=== PATIENT | female | born 1985 | race Caucasian/White ===

== ENCOUNTER → 2016-11-10 | Outpatient (CLI) | payer OTHER ==
[2016-11-10 18:01] LABS: Basophils % (A) 0 %; CH 28.4; CHCM 32.8; Eosinophils # (A) 0.1 k/uL (0-0.7); Eosinophils % (A) 3 %; HCT 42.1 % (34.0-46.0); HDW 2.62; HGB 13.3 gm/dL (11.4-16.0); Luc # (Auto) 0.09; Luc % (Auto) 2; Lymphocytes # (A) 1.9 k/uL (1.0-4.8); Lymphocytes % (A) 39 %; MCH 27.5 pg (25.0-35.0); MCHC 31.7 g/dL (31.0-37.0); MCV 86.8 fL (80.0-100.0); Mean Platelet Volume 7.9; Monocytes # (A) 0.3 k/uL (0-1.0); Monocytes % (A) 5 %; Neutrophils # (A) 2.4 k/uL (1.3-7.7); Neutrophils % (A) 50 %; RBC 4.85 m/uL (3.80-5.40); RDW 13.1 % (11.5-15.5); WBC 4.7 k/uL (3.8-10.6); WBC (Perox) 5.07
[2016-11-10 18:22] LABS: ALT 23 U/L (9-52); AST 22 U/L (14-36); Alkaline Phosphatase 57 U/L (38-126); Anion Gap 12 mmol/L; Blood Urea Nitrogen 12 mg/dL (7-17); Calcium 9.2 mg/dL (8.4-10.2); Carbon Dioxide 28 mmol/L (22-30); Chloride 103 mmol/L (98-107); Cholesterol 128 mg/dL (<200); Glucose 82 mg/dL (74-99); HDL Cholesterol 65 mg/dL (40-60); Non-African American GFR(MDRD) >60 (>60 ml/min/1.73 sqM); Potassium 4.5 mmol/L (3.5-5.1); Sodium 143 mmol/L (137-145); Total Bilirubin 0.7 mg/dL (0.2-1.3); Total Protein 7.4 g/dL (6.3-8.2); Triglycerides 42 mg/dL (<150)
== END | disposition home or self-care (01) ==
LOC: MMGSC 10:53
PROVIDERS: ATTEND Family Medicine
DX: Z00.00 Encounter for general adult medical examination without abnormal findings (principal); R63.5 Abnormal weight gain
CPT/HCPCS: 36415; 80053; 80061; 84439; 84443; 85025

== ENCOUNTER → 2017-01-11 | Outpatient (CLI) | payer OTHER ==
[2017-01-11 20:32] LABS: ALT 30 U/L (9-52); AST 19 U/L (14-36); Alkaline Phosphatase 45 U/L (38-126); Anion Gap 9 mmol/L; Blood Urea Nitrogen 12 mg/dL (7-17); Calcium 9.8 mg/dL (8.4-10.2); Carbon Dioxide 28 mmol/L (22-30); Chloride 104 mmol/L (98-107); Glucose 81 mg/dL (74-99); Non-African American GFR(MDRD) >60 (>60 ml/min/1.73 sqM); Potassium 4.1 mmol/L (3.5-5.1); Sodium 141 mmol/L (137-145); Total Bilirubin 0.4 mg/dL (0.2-1.3); Total Protein 7.6 g/dL (6.3-8.2)
== END ==
LOC: MMGSC 10:37
PROVIDERS: ATTEND Family Medicine
DX: I10 Essential (primary) hypertension (principal); Z51.81 Encounter for therapeutic drug level monitoring
CPT/HCPCS: 36415; 80053

== ENCOUNTER → 2020-01-07 | Outpatient (CLI) | payer BC ==
--- NOTE | 2020-01-07 09:30 | US ---
EXAMINATION TYPE: US abdomen complete DATE OF EXAM: 01/07/2020 COMPARISON: NONE CLINICAL HISTORY: abd pain. abdomen pain x 4 days EXAM MEASUREMENTS: Liver Length: 13.9 cm Gallbladder Wall: 0.2 cm CBD: 0.5 cm Spleen: 9.8 cm Right Kidney: 11.3 x 4.4 x 4.7 cm Left Kidney: 11.2 x 5.5 x 4.3 cm Pancreas: wnl Liver: 1.5 x 1.9 x 1.5cm cyst right lobe Gallbladder: 0.4cm polyp anterior wall Evidence for sonographic Grullon's sign: no CBD: wnl Spleen: visualized portions wnl, limited by overlying bowel gas Right Kidney: fullness of renal pelvis Left Kidney: fullness of renal pelvis Upper IVC: wnl Abd Aorta: wnl The liver is homogenous. The intrahepatic portion of the IVC and proximal abdominal aorta are within normal limits. There is no evidence of cholelithiasis. Common bile duct is unremarkable. The visu alized portions of the pancreas are homogenous. The spleen is unremarkable. No renal lesions are se en. IMPRESSION: 1. Hepatic cyst. 2. Gallbladder polyp. 3. Nonspecific fullness of the renal collecting systems.
--- NOTE | 2020-01-07 09:31 | US ---
EXAMINATION TYPE: US pelvic complete DATE OF EXAM: 01/07/2020 COMPARISON: NONE CLINICAL HISTORY: Abd pain R10.9 Pelvic pain R10.2. Abdomen pain x 4 days TECHNIQUE: . Transabdominal sonographic images of the pelvis were acquired. Date of LMP: 1 to 2 weeks ago EXAM MEASUREMENTS: Uterus: 10.7 x 3.4 x 3.8 cm Endometrial Stripe: 0.5 cm Right Ovary: 4.1 x 2.2 x 2.2 cm Left Ovary: 3.4 x 2.0 x 2.2 cm 1. Uterus: wnl 2. Endometrium: wnl 3. Right Ovary: multiple follicles 4. Left Ovary: multiple follicles Spectral, color and waveform doppler imaging shows good arterial and venous flow within the ovaries ; there is no evidence for ovarian torsion. 5. Bilateral Adnexa: wnl 6. Posterior cul-de-sac: wnl IMPRESSION: No significant abnormality appreciated.
== END | disposition home or self-care (01) ==
LOC: RADUSWWP 08:19
PROVIDERS: ATTEND Family Medicine
DX: K76.89 Other specified diseases of liver (principal); K82.4 Cholesterolosis of gallbladder; R10.2 Pelvic and perineal pain
CPT/HCPCS: 76700; 76856; 93975

== ENCOUNTER 2020-03-16 23:58 | Emergency (ER) | payer BC ==
--- NOTE | 2020-03-17 01:19 | XR ---
EXAMINATION TYPE: XR chest 2V DATE OF EXAM: 03/17/2020 COMPARISON: 10/17/2019 HISTORY: Chest pain TECHNIQUE: FINDINGS: Heart and mediastinum are normal. Lungs are clear. Diaphragm is normal. Bony thorax appears normal. IMPRESSION: Normal chest. No change.
[2020-03-17 02:13] LABS: Basophils % (A) 1 %; Eosinophils # (A) 0.3 k/uL (0-0.7); Eosinophils % (A) 3 %; HCT 41.1 % (34.0-46.0); HGB 13.3 gm/dL (11.4-16.0); Lymphocytes # (A) 2.7 k/uL (1.0-4.8); Lymphocytes % (A) 33 %; MCH 27.9 pg (25.0-35.0); MCHC 32.4 g/dL (31.0-37.0); Mean Platelet Volume 8.8; Monocytes # (A) 0.5 k/uL (0-1.0); Monocytes % (A) 6 %; Neutrophils # (A) 4.6 k/uL (1.3-7.7); Neutrophils % (A) 56 %; Platelet Count 182 k/uL (150-450); RBC 4.78 m/uL (3.80-5.40); RDW 13.1 % (11.5-15.5); WBC 8.2 k/uL (3.8-10.6)
--- NOTE | 2020-03-17 02:29 | ED ---
SOB HPI - General Source: patient Mode of arrival: ambulatory Limitations: no limitations <Oef Avendano - Last Filed: 03/17/20 03:26> <Kalin Coley - Last Filed: 03/17/20 05:31> - General Chief Complaint: Shortness of Breath Stated Complaint: Shortness of Breath Time Seen by Provider: 03/17/20 01:45 - History of Present Illness Initial Comments: Patient is a 34-year-old female, with history of anxiety and hypertension, presenting to the emergency Department with complaints of shortness of breath that has been increasing over the past week. She states she is also been having some mild chest discomfort with deep breathing over the past week as well. She states she thought it might just be her anxiety but typically that goes away after a few days. She states she has been stressing about her symptoms lately. She did take a Klonopin before she came in to the ER approximately 3 hours ago and it did seem to help her symptoms some. Patient denies any falls or trauma. She denies any recent fever, chills, cough. She denies any abdominal complaints or urinary complaints. She has no history of asthma. She has no further complaints at this time. Upon arrival to the ER, her vital signs are stable. (Ofe Avendano) - Related Data Allergies Allergy/AdvReac Type Severity Reaction Status Date / Time No Known Allergies Allergy Verified 03/17/20 00:28 Review of Systems ROS Other: All systems not noted in ROS Statement are negative. <Ofe Avendano - Last Filed: 03/17/20 03:26> ROS Other: All systems not noted in ROS Statement are negative. <Kalin Coley - Last Filed: 03/17/20 05:31> ROS Statement: Those systems with pertinent positive or pertinent negative responses have been documented in the HPI. Past Medical History Past Medical History: Hypertension History of Any Multi-Drug Resistant Organisms: None Reported Past Surgical History: No Surgical Hx Reported Past Psychological History: Anxiety Smoking Status: Current every day smoker Past Alcohol Use History: Rare Past Drug Use History: None Reported <Ofe Avendano - Last Filed: 03/17/20 03:26> General Exam Limitations: no limitations <Ofe Avendano - Last Filed: 06/29/20 03:26> - General Exam Comments Initial Comments: GENERAL: Well-appearing, well-nourished and in no acute distress. HEAD: Atraumatic, normocephalic. EYES: Pupils equal round and reactive to light, extraocular movements intact, sclera anicteric, conjunctiva are normal. ENT: TMs normal, nares patent, oropharynx clear without exudates. Moist mucous membranes. NECK: Normal range of motion, supple without lymphadenopathy or JVD. LUNGS: Breath sounds clear to auscultation bilaterally and equal. No wheezes rales or rhonchi. HEART: Regular rate and rhythm without murmurs, rubs or gallops. ABDOMEN: Soft, nontender, normoactive bowel sounds. No guarding, no rebound. No masses appreciated. : Deferred EXTREMITIES: Normal range of motion, no pitting or edema. No clubbing or cyanosis. NEUROLOGICAL: Normal speech, normal gait. PSYCH: Normal mood, normal affect. SKIN: Warm, Dry, normal turgor, no rashes or lesions noted. (Ofe Avendano) Course Vital Signs 03/17/20 03/17/20 03/17/20 00:23 01:54 01:59 Temperature 99.5 F Pulse Rate 87 74 Respiratory 18 16 16 Rate Blood Pressure 123/80 127/97 O2 Sat by Pulse 100 100 Oximetry 03/17/20 03/17/20 03/17/20 02:00 03:00 04:19 Temperature 97.4 F L Pulse Rate 80 75 76 Respiratory 16 16 20 Rate Blood Pressure 141/106 116/84 134/93 O2 Sat by Pulse 100 98 99 Oximetry Medical Decision Making - Lab Data Result diagrams: 03/17/20 01:51 03/17/20 01:51 <Ofe Avendano - Last Filed: 03/17/20 03:26> - Lab Data Result diagrams: 03/17/20 01:51 03/17/20 01:51 - Radiology Data Radiology results: report reviewed (CTA chest is negative for acute disease), image reviewed <Kalin Coley - Last Filed: 03/17/20 05:31> - Medical Decision Making Patient is a 34-year-old female, with history of anxiety and hypertension, presenting for increasing shortness of breath over the past week as well as some mild chest discomfort with deep inhalation. She's had no fevers, her vitals are stable. EKG reveals normal sinus rhythm, no acute findings. Chest x-ray shows no acute findings. D-dimer was elevated at 5.49, no other abnormal lab findings, troponin was normal. Case was signed out to Dr. Coley, pending CTA chest to r/o PE. (Ofe Avendano) 32 female, patient has computed tomography scan chest which is negative for acute disease unknown cause of symptoms patient can be discharged home (Kalin Coley) - Lab Data Lab Results 03/17/20 03/17/20 03/17/20 Range/Units 01:51 01:51 01:51 WBC 8.2 (3.8-10.6) k/uL RBC 4.78 (3.80-5.40) m/uL Hgb 13.3 (11.4-16.0) gm/dL Hct 41.1 (34.0-46.0) % MCV 86.0 (80.0-100.0) fL MCH 27.9 (25.0-35.0) pg MCHC 32.4 (31.0-37.0) g/dL RDW 13.1 (11.5-15.5) % Plt Count 182 (150-450) k/uL Neutrophils % 56 % Lymphocytes % 33 % Monocytes % 6 % Eosinophils % 3 % Basophils % 1 % Neutrophils # 4.6 (1.3-7.7) k/uL Lymphocytes # 2.7 (1.0-4.8) k/uL Monocytes # 0.5 (0-1.0) k/uL Eosinophils # 0.3 (0-0.7) k/uL Basophils # 0.0 (0-0.2) k/uL D-Dimer 5.49 H (<0.60) mg/L FEU Sodium 137 (137-145) mmol/L Potassium 4.1 (3.5-5.1) mmol/L Chloride 103 (98-107) mmol/L Carbon Dioxide 24 (22-30) mmol/L Anion Gap 10 mmol/L BUN 20 H (7-17) mg/dL Creatinine 0.64 (0.52-1.04) mg/dL Est GFR (CKD-EPI)AfAm >90 (>60 ml/min/1.73 sqM) Est GFR (CKD-EPI)NonAf >90 (>60 ml/min/1.73 sqM) Glucose 94 (74-99) mg/dL Calcium 9.8 (8.4-10.2) mg/dL Total Bilirubin 0.4 (0.2-1.3) mg/dL AST 23 (14-36) U/L ALT 13 (4-34) U/L Alkaline Phosphatase 62 (38-126) U/L Troponin I (0.000-0.034) ng/mL Total Protein 7.5 (6.3-8.2) g/dL Albumin 4.7 (3.5-5.0) g/dL 03/17/20 Range/Units 01:51 WBC (3.8-10.6) k/uL RBC (3.80-5.40) m/uL Hgb (11.4-16.0) gm/dL Hct (34.0-46.0) % MCV (80.0-100.0) fL MCH (25.0-35.0) pg MCHC (31.0-37.0) g/dL RDW (11.5-15.5) % Plt Count (150-450) k/uL Neutrophils % % Lymphocytes % % Monocytes % % Eosinophils % % Basophils % % Neutrophils # (1.3-7.7) k/uL Lymphocytes # (1.0-4.8) k/uL Monocytes # (0-1.0) k/uL Eosinophils # (0-0.7) k/uL Basophils # (0-0.2) k/uL D-Dimer (<0.60) mg/L FEU Sodium (137-145) mmol/L Potassium (3.5-5.1) mmol/L Chloride (98-107) mmol/L Carbon Dioxide (22-30) mmol/L Anion Gap mmol/L BUN (7-17) mg/dL Creatinine (0.52-1.04) mg/dL Est GFR (CKD-EPI)AfAm (>60 ml/min/1.73 sqM) Est GFR (CKD-EPI)NonAf (>60 ml/min/1.73 sqM) Glucose (74-99) mg/dL Calcium (8.4-10.2) mg/dL Total Bilirubin (0.2-1.3) mg/dL AST (14-36) U/L ALT (4-34) U/L Alkaline Phosphatase (38-126) U/L Troponin I <0.012 (0.000-0.034) ng/mL Total Protein (6.3-8.2) g/dL Albumin (3.5-5.0) g/dL - EKG Data EKG Comments: Normal sinus rhythm with sinus arrhythmia, normal ECG, no signs of acute ischemia. Ventricular rate 85, ME interval 146, QT 374. (Ofe Avendano) Disposition <Ofe Avendano - Last Filed: 03/17/20 03:26> Is patient prescribed a controlled substance at d/c from ED?: No <Kalin Coley - Last Filed: 03/17/20 05:31> Clinical Impression: Chest pain Disposition: HOME SELF-CARE Condition: Good Instructions (If sedation given, give patient instructions): Chest Pain (ED) Referrals: Kira Burgos MD [Primary Care Provider] - 1-2 days
[2020-03-17 02:32] LABS: ALT 13 U/L (4-34); AST 23 U/L (14-36); African American GFR (CKD) >90 (>60 ml/min/1.73 sqM); Albumin 4.7 g/dL (3.5-5.0); Alkaline Phosphatase 62 U/L (38-126); Anion Gap 10 mmol/L; Blood Urea Nitrogen 20 mg/dL (7-17); Calcium 9.8 mg/dL (8.4-10.2); Carbon Dioxide 24 mmol/L (22-30); Chloride 103 mmol/L (98-107); Glucose 94 mg/dL (74-99); Non-African American GFR(CKD) >90 (>60 ml/min/1.73 sqM); Potassium 4.1 mmol/L (3.5-5.1); Sodium 137 mmol/L (137-145); Total Bilirubin 0.4 mg/dL (0.2-1.3); Total Protein 7.5 g/dL (6.3-8.2)
--- NOTE | 2020-03-17 03:47 | CT ---
EXAMINATION TYPE: CT chest angio for PE DATE OF EXAM: 03/17/2020 COMPARISON: None HISTORY: R/O PE CT DLP: 415.70 mGycm Automated exposure control for dose reduction was used. CONTRAST: Performed with IV Contrast, patient injected with 70 mL of Isovue 370. The lungs are clear of infiltrate. There is no pleural effusion or pneumothorax. Heart size is normal . There is no pericardial effusion. There is 2 cm cyst in the right lobe of the liver. There are no hilar masses. There is no mediastinal adenopathy. Thoracic aorta is intact. There is no aneurysm or dissection. There is normal contrast opacification of the pulmonary arteries. There are no filling defects. Thoracic vertebra have normal spacing and alignment. There is no compression fracture. The ribs appea r intact. IMPRESSION: Negative exam. No evidence of pulmonary embolism.
[2020-03-17 04:20] VITALS: BP 134/93; PULSE 76; RESP 20; TEMP 97.4
== END 2020-03-17 04:18 | disposition home or self-care (01) ==
LOC: EC 23:58
DX: R07.1 Chest pain on breathing (principal); R06.02 Shortness of breath; I10 Essential (primary) hypertension; F41.9 Anxiety disorder, unspecified; F17.200 Nicotine dependence, unspecified, uncomplicated; Z79.899 Other long term (current) drug therapy
CPT/HCPCS: 99285; 36415; 93005; 85379; 80053; 84484; 85025; 71046; 71275; Q9967

== ENCOUNTER 2023-09-01 08:36 | Emergency (ER) | payer BC ==
[2023-09-01] MEDS ORDERED: KETOROLAC 15 MG/ML 1 ML VIAL IVP STA (08:55)
[2023-09-01] MEDS ORDERED: SODIUM CHLORIDE 0.9% 1,000 ML IV STA (08:55)
--- NOTE | 2023-09-01 09:00 | ED ---
Abdominal Pain HPI - General Chief Complaint: Abdominal Pain Stated Complaint: right/center abd pain Time Seen by Provider: 09/01/23 08:43 Source: patient, RN notes reviewed Mode of arrival: ambulatory Limitations: no limitations - History of Present Illness Initial Comments: This is a 38-year-old female who presents to the emergency department for abdom inal pain. States that this is in the right upper quadrant and described as a squeezing sensation. This has been occurring intermittently over the last 4 months, and states that she typically ignores it. However the pain has gotten much worse over the last 4-5 days. She does occasionally have nausea associated with this. Pain seems to be worse after she eats, unsure if this is related to fatty/greasy foods. She does note that she seems to have problems with large meals specifically, and symptoms begin within an hour of eating. She has never had her gallbladder evaluated. MD Complaint: abdominal pain - Related Data Previous Rx's Medication Instructions Recorded Ketorolac [Toradol] 10 mg PO Q6HR PRN #15 tab 09/01/23 Ondansetron Odt [Zofran Odt] 4 mg PO Q8HR PRN #15 tab 09/01/23 Allergies Allergy/AdvReac Type Severity Reaction Status Date / Time No Known Allergies Allergy Verified 09/01/23 08:42 Review of Systems ROS Statement: Those systems with pertinent positive or pertinent negative responses have been documented in the HPI. ROS Other: All systems not noted in ROS Statement are negative. Past Medical History Past Medical History: Hypertension History of Any Multi-Drug Resistant Organisms: None Reported Past Surgical History: No Surgical Hx Reported Past Psychological History: Anxiety Smoking Status: Never smoker Past Alcohol Use History: Occasional, Rare Past Drug Use History: None Reported General Exam Limitations: no limitations General appearance: alert, in no apparent distress Head exam: Present: atraumatic, normocephalic, normal inspection Respiratory exam: Present: normal lung sounds bilaterally. Absent: respiratory distress, wheezes, rales, rhonchi, stridor Cardiovascular Exam: Present: regular rate, normal rhythm, normal heart sounds. Absent: systolic murmur, diastolic murmur, rubs, gallop, clicks GI/Abdominal exam: Present: soft, normal bowel sounds. Absent: distended, tenderness, guarding, rebound, rigid Neurological exam: Present: alert, oriented X3, CN II-XII intact Psychiatric exam: Present: normal affect, normal mood Skin exam: Present: warm, dry, intact, normal color. Absent: rash Course Vital Signs 09/01/23 09/01/23 09/01/23 08:38 10:00 11:25 Temperature 97.8 F 98.1 F 98.1 F Pulse Rate 130 H 75 89 Respiratory 18 16 16 Rate Blood Pressure 125/88 127/87 106/70 O2 Sat by Pulse 100 99 100 Oximetry 09/01/23 12:37 Temperature 98.4 F Pulse Rate 76 Respiratory 16 Rate Blood Pressure 132/76 O2 Sat by Pulse 99 Oximetry Medical Decision Making - Medical Decision Making This is a 38-year-old female who presents to the emergency department for abdominal pain. Was pt. sent in by a medical professional or institution? @ -No Did you speak to anyone other than the patient for history? @ -No Did you review nursing and triage notes? @ -Yes, and I agree, it is accurate with regards to the patient's symptoms. Were old charts reviewed? @ -No Differential Diagnosis? @ -Differential Abdominal Pain Women: Appendicitis, Cholecystitis, diverticulosis, ischemic bowel, pancreatitis, hepatitis, UTI, gastroenteritis, AAA, incarcerated hernia, bowel obstruction, constipation, inflammatory bowel, hepatitis, peptic ulcer disease, splenic infarction, perforated viscus, vulvitis, ovarian torsion, PID, kidney stone, placenta abruption, this is not meant to be an all-inclusive list EKG interpreted by me (3pts min.)? @ -Not obtained X-rays interpreted by me (1pt min.)? @ -Not obtained CT interpreted by me (1pt min.)? @ -Computed tomography scan of the abdomen and pelvis obtained. My interpretation identifies no evidence of bowel wall thickening or free air. U/S interpreted by me (1pt. min.)? @ -Gallbladder ultrasound. My interpretation identifies no evidence of cholelithiasis. What testing was considered but not performed? (CT, X-rays, U/S, labs)? Why? @ -None What meds were considered but not given? Why? @ -None Did you discuss the management of the patient with other professionals? @ -No Did you reconcile home meds? @ -No Was smoking cessation discussed for >3mins.? @ -I discussed smoking cessation for greater than 3 minutes. The risk of smoking were discussed with the patient including but not limited to risks of cancer, stroke, coronary artery disease and COPD. Also discussed with patient were multiple methods of quitting smoking. Lastly we discussed the financial cost of smoking. Was critical care preformed (if so, how long)? @ -No Were there social determinants of health that impacted care today? How? (Homelessness, low income, unemployed, alcoholism, drug addiction, transportation, low edu. Level, literacy, decrease access to med. care, care home, rehab)? @ -No Was there de-escalation of care discussed even if they declined? (Discuss DNR or withdrawal of care, Hospice)? @ -No What co-morbidities impacted this encounter? (DM, HTN, Smoking, COPD, CAD, Cancer, CVA, Hep., AIDS, mental health diagnosis, sleep apnea, morbid obesity)? @ -None Was patient admitted / discharged? @ -Discharged. Lab work obtained and found to be unremarkable. Urinalysis is contaminated, but not overtly suggestive of infection. She was noted to have a likely gallbladder polyp and fullness of the right renal pelvis, without evidence of cholelithiasis or acute process to explain her symptoms. She did request further evaluation to see if we could find a potential answer. Discussed that the only other imaging modality we can perform in emergency department related to her symptoms is a computed tomography scan. Patient requests we proceed. This revealed no acute process. Advised that symptoms may be related to a biliary dyskinesia, and she'll need to follow-up with her primary care provider to discuss a HIDA scan. Case management did reach out to gastroenterology, however they are scheduling out until October. She was then given an appointment with her primary care provider for 8 days from now for reevaluation of symptoms and to see if they will order the HIDA scan for the patient. Prescription for Toradol and Zofran provided with dosing instructions reviewed. Advised she follow a small and low fat, bland diet for the meantime and avoid any greasy or fatty foods to reduce the risk of recurrence. Patient discharged home in stable condition. Undiagnosed new problem with uncertain prognosis? @ -None Drug Therapy requiring intensive monitoring for toxicity (Heparin, Nitro, Insulin, Cardizem)? @ -None Were any procedures done? @ -None Diagnosis/symptom? @ -Biliary dyskinesia Acute, or Chronic, or Acute on Chronic? @ -Acute Uncomplicated (without systemic symptoms) or Complicated (systemic symptoms)? @ -Uncomplicated Side effects of treatment? @ -None Exacerbation, Progression, or Severe Exacerbation] @ -Not applicable Poses a threat to life or bodily function? @ -No Return precautions reviewed in depth, the patient is instructed to return to the emergency department with any new, worsening, or concerning symptoms. Patient verbalized understanding. This case was discussed in detail with the attending ED physician, Dr. Mcfarlane. Presentation, findings, and treatment plan discussed in detail as well. - Lab Data Result diagrams: 09/01/23 09:05 09/01/23 09:05 Lab Results 09/01/23 09/01/23 09/01/23 Range/Units 09:05 09:05 09:05 WBC 4.1 (3.8-10.6) k/uL RBC 4.57 (3.80-5.40) m/uL Hgb 13.4 (11.4-16.0) gm/dL Hct 39.0 (34.0-46.0) % MCV 85.5 (80.0-100.0) fL MCH 29.4 (25.0-35.0) pg MCHC 34.4 (31.0-37.0) g/dL RDW 13.4 (11.5-15.5) % Plt Count 200 (150-450) k/uL MPV 8.8 Neutrophils % 44 % Lymphocytes % 44 % Monocytes % 6 % Eosinophils % 3 % Basophils % 1 % Neutrophils # 1.8 (1.3-7.7) k/uL Lymphocytes # 1.8 (1.0-4.8) k/uL Monocytes # 0.2 (0-1.0) k/uL Eosinophils # 0.1 (0-0.7) k/uL Basophils # 0.0 (0-0.2) k/uL Sodium 141 (137-145) mmol/L Potassium 4.4 (3.5-5.1) mmol/L Chloride 103 (98-107) mmol/L Carbon Dioxide 24 (22-30) mmol/L Anion Gap 14 mmol/L BUN 14 (7-17) mg/dL Creatinine 0.73 (0.52-1.04) mg/dL Est GFR (CKD-EPI)AfAm >90 (>60 ml/min/1.73 sqM) Est GFR (CKD-EPI)NonAf >90 (>60 ml/min/1.73 sqM) Glucose 79 (74-99) mg/dL Plasma Lactic Acid Connor 0.7 (0.7-2.0) mmol/L Calcium 9.5 (8.4-10.2) mg/dL Total Bilirubin 0.7 (0.2-1.3) mg/dL AST 21 (14-36) U/L ALT 18 (4-34) U/L Alkaline Phosphatase 49 (38-126) U/L Total Protein 7.3 (6.3-8.2) g/dL Albumin 4.6 (3.5-5.0) g/dL Amylase 79 (30-110) U/L Lipase 182 (23-300) U/L Urine Color Urine Appearance (Clear) Urine pH (5.0-8.0) Ur Specific [place] (1.001-1.035) Urine Protein (Negative) Urine Glucose (UA) (Negative) Urine Ketones (Negative) Urine Blood (Negative) Urine Nitrite (Negative) Urine Bilirubin (Negative) Urine Urobilinogen (<2.0) mg/dL Ur Leukocyte Esterase (Negative) Urine RBC (0-5) /hpf Urine WBC (0-5) /hpf Ur Squamous Epith Cells (0-4) /hpf Urine Bacteria (None) /hpf Urine Mucus (None) /hpf Urine HCG, Qual (Not Detectd) 09/01/23 09/01/23 Range/Units 09:05 09:05 WBC (3.8-10.6) k/uL RBC (3.80-5.40) m/uL Hgb (11.4-16.0) gm/dL Hct (34.0-46.0) % MCV (80.0-100.0) fL MCH (25.0-35.0) pg MCHC (31.0-37.0) g/dL RDW (11.5-15.5) % Plt Count (150-450) k/uL MPV Neutrophils % % Lymphocytes % % Monocytes % % Eosinophils % % Basophils % % Neutrophils # (1.3-7.7) k/uL Lymphocytes # (1.0-4.8) k/uL Monocytes # (0-1.0) k/uL Eosinophils # (0-0.7) k/uL Basophils # (0-0.2) k/uL Sodium (137-145) mmol/L Potassium (3.5-5.1) mmol/L Chloride (98-107) mmol/L Carbon Dioxide (22-30) mmol/L Anion Gap mmol/L BUN (7-17) mg/dL Creatinine (0.52-1.04) mg/dL Est GFR (CKD-EPI)AfAm (>60 ml/min/1.73 sqM) Est GFR (CKD-EPI)NonAf (>60 ml/min/1.73 sqM) Glucose (74-99) mg/dL Plasma Lactic Acid Connor (0.7-2.0) mmol/L Calcium (8.4-10.2) mg/dL Total Bilirubin (0.2-1.3) mg/dL AST (14-36) U/L ALT (4-34) U/L Alkaline Phosphatase (38-126) U/L Total Protein (6.3-8.2) g/dL Albumin (3.5-5.0) g/dL Amylase (30-110) U/L Lipase (23-300) U/L Urine Color Yellow Urine Appearance Slightly Cloudy H (Clear) Urine pH 6.0 (5.0-8.0) Ur Specific [place] 1.030 (1.001-1.035) Urine Protein Negative (Negative) Urine Glucose (UA) Negative (Negative) Urine Ketones Negative (Negative) Urine Blood Trace H (Negative) Urine Nitrite Negative (Negative) Urine Bilirubin Negative (Negative) Urine Urobilinogen 0.2 (<2.0) mg/dL Ur Leukocyte Esterase Moderate H (Negative) Urine RBC 4 (0-5) /hpf Urine WBC 22 H (0-5) /hpf Ur Squamous Epith Cells 22 H (0-4) /hpf Urine Bacteria Occasional H (None) /hpf Urine Mucus Few H (None) /hpf Urine HCG, Qual Not Detected (Not Detectd) - Radiology Data Radiology results: report reviewed, image reviewed Disposition Clinical Impression: Biliary dyskinesia, Nicotine dependence Disposition: HOME SELF-CARE Instructions (If sedation given, give patient instructions): HIDA Scan (DC), Biliary Dyskinesia (DC) Additional Instructions: Return to the emergency department with any new, worsening, or concerning symptoms. Take the Toradol with Tylenol as needed for pain relief. If you choose to take the Toradol, do not take any other anti-inflammatories such as ibuprofen, take one or the other. Take the Zofran up to every 8 hours as needed for nausea and vomiting. Follow a low-fat and bland diet for the meantime to reduce the risk of future episodes. Follow up with your primary care provider as scheduled. Prescriptions: Ketorolac [Toradol] 10 mg PO Q6HR PRN #15 tab PRN Reason: Pain Ondansetron Odt [Zofran Odt] 4 mg PO Q8HR PRN #15 tab PRN Reason: Nausea And Vomiting Is patient prescribed a controlled substance at d/c from ED?: No Referrals: Stephany Martines MD [STAFF PHYSICIAN] - 10/31/23 4:15 pm Kira Burgos MD [Primary Care Provider] - 09/09/23 4:00 pm Chetan Campos MD [STAFF PHYSICIAN] - (PCP Office will have to send referral to office for appointment to be made. )
[2023-09-01 09:20] LABS: Basophils % (A) 1 %; Eosinophils # (A) 0.1 k/uL (0-0.7); Eosinophils % (A) 3 %; HGB 13.4 gm/dL (11.4-16.0); Lymphocytes # (A) 1.8 k/uL (1.0-4.8); Lymphocytes % (A) 44 %; MCH 29.4 pg (25.0-35.0); MCHC 34.4 g/dL (31.0-37.0); MCV 85.5 fL (80.0-100.0); Mean Platelet Volume 8.8; Monocytes # (A) 0.2 k/uL (0-1.0); Monocytes % (A) 6 %; Neutrophils # (A) 1.8 k/uL (1.3-7.7); Neutrophils % (A) 44 %; Platelet Count 200 k/uL (150-450); RBC 4.57 m/uL (3.80-5.40); RDW 13.4 % (11.5-15.5); WBC 4.1 k/uL (3.8-10.6)
[2023-09-01 09:38] LABS: ALT 18 U/L (4-34); AST 21 U/L (14-36); African American GFR (CKD) >90 (>60 ml/min/1.73 sqM); Albumin 4.6 g/dL (3.5-5.0); Alkaline Phosphatase 49 U/L (38-126); Amylase 79 U/L (30-110); Anion Gap 14 mmol/L; Blood Urea Nitrogen 14 mg/dL (7-17); Calcium 9.5 mg/dL (8.4-10.2); Carbon Dioxide 24 mmol/L (22-30); Chloride 103 mmol/L (98-107); Glucose 79 mg/dL (74-99); Lipase 182 U/L (23-300); Non-African American GFR(CKD) >90 (>60 ml/min/1.73 sqM); Potassium 4.4 mmol/L (3.5-5.1); Sodium 141 mmol/L (137-145); Total Bilirubin 0.7 mg/dL (0.2-1.3); Total Protein 7.3 g/dL (6.3-8.2)
[2023-09-01 09:41] LABS: Appearance,Urine Slightly Cloudy (Clear); Bilirubin,Urine Negative (Negative); Blood,Urine Trace (Negative); Color,Urine Yellow; Glucose,Urine (UA) Negative (Negative); Ketones,Urine Negative (Negative); Leukocyte Esterase,Urine Moderate (Negative); Nitrite,Urine Negative (Negative); Protein,Urine Negative (Negative); Urobilinogen,Urine 0.2 mg/dL (<2.0)
[2023-09-01 09:44] LABS: Bacteria,Urine Occasional /hpf; Mucus,Urine Few /hpf; RBC,Urine 4 /hpf (0-5); Squamous Epithelial Cell,Urine 22 /hpf (0-4); WBC,Urine 22 /hpf (0-5)
--- NOTE | 2023-09-01 09:55 | US ---
EXAMINATION TYPE: US gallbladder DATE OF EXAM: 09/01/2023 COMPARISON: NONE CLINICAL INDICATION: Female, 38 years old with history of RUQ pain; RUQ pain x couple days TECHNIQUE: Multiple sonographic images of the right upper quadrant are obtained. FINDINGS: EXAM MEASUREMENTS: Liver Length: 13.3 cm Gallbladder Wall: 0.2 cm CBD: 0.5 cm Right Kidney: 10.9 x 3.9 x 4.3 cm Pancreas: wnl Liver: 2.0 x 1.6 x 1.9cm cyst right lobe Gallbladder: 0.4cm polyp seen anterior wall Evidence for sonographic Grullon's sign: yes CBD: wnl Right Kidney: fullness of renal pelvis IMPRESSION: 1. Simple appearing cyst right hepatic lobe. 2. Probable gallbladder polyp. 3. Fullness of the right renal pelvis.
[2023-09-01] MEDS ORDERED: MORPHINE SULFATE 2 MG/ML SYRINGE IVP STA (10:22)
[2023-09-01 11:44] VITALS: RESP 16
--- NOTE | 2023-09-01 11:52 | CT ---
EXAMINATION TYPE: CT abdomen pelvis w con CT DLP: 646.8 mGycm, Automated exposure control for dose reduction was used. DATE OF EXAM: 09/01/2023 11:22 AM COMPARISON: CT abdomen pelvis most recent from CLINICAL INDICATION:Female, 38 years old with history of RUQ and epigastric pain; RUQ and epigastric pain TECHNIQUE: Axial CT of the ;CT abdomen pelvis w con;Sagittal and coronal reformats were created on a separate workstation. Contrast used:100 ml mL of Isovue 300 with IV Contrast, (none if empty) Oral contrast used: without Oral Contrast (none if empty) FINDINGS: LOWER CHEST: Unremarkable ABDOMEN LIVER: simple appearing hepatic cyst. GALLBLADDER AND BILE DUCTS: Gallbladder duque appear within normal limits, no cholelithiasis PANCREAS: Unremarkable. SPLEEN: Unremarkable. ADRENAL GLANDS: Unremarkable. KIDNEYS AND URETERS: No evidence of hydronephrosis or renal calculus. The ureters are unremarkable. PELVIS BLADDER: Unremarkable REPRODUCTIVE: Unremarkable. ABDOMEN & PELVIS STOMACH AND BOWEL: No evidence of bowel obstruction. The appendix is normal. PERITONEUM/RETROPERITONEUM: No evidence of pneumoperitoneum or free fluid. VASCULATURE: No evidence of aortic aneurysm. MUSCULOSKELETAL: No acute osseous abnormalities LYMPH NODES: No gross evidence for lymphadenopathy. SOFT TISSUE/ABDOMINAL WALL: Fat-containing umbilical hernia. IMPRESSION: 1. No evidence for acute right upper quadrant process to explain the patient's pain. 2. No obstructive uropathy or renal calculus visualized. 3. Normal appendix.
[2023-09-01] MEDS ORDERED: traMADol 50 MG STARTER PACK 3 TAB BTL PO STA (11:58)
[2023-09-01] MEDS ORDERED: ONDANSETRON 4 MG ODT STARTER PACK 2 TAB BTL PO STA (11:58)
[2023-09-01] MEDS ORDERED: IBUPROFEN 600 MG STARTER PACK 4 TAB BTL PO STA (11:58)
[2023-09-01 13:01] VITALS: BP 132/76; PULSE 76; TEMP 98.4
== END 2023-09-01 12:38 | disposition home or self-care (01) ==
LOC: EC 08:36
DX: K82.8 Other specified diseases of gallbladder (principal); I10 Essential (primary) hypertension
CPT/HCPCS: 36415; 80053; 82150; 83605; 83690; 85025; 81001; 81025; 76705; 74177; 99284; 96374; 96375; 96361; J2270; J1885; S0119; Q9967

== ENCOUNTER → 2023-10-24 | Outpatient (CLI) | payer BC ==
--- NOTE | 2023-10-24 16:45 | NM ---
EXAMINATION TYPE: NM hepatobiliary w EF DATE OF EXAM: 10/24/2023 3:40 PM COMPARISON: CT abdomen pelvis most recent from 09/01/2023. CLINICAL INDICATION:Female, 38 years old with history of R10.11 RUQ pain; TECHNIQUE: The patient was given 5.11 mCi of Technetium 99m-Mebrofenin as a radiotracer and multiple scintigraphic images were obtained of the abdomen. Gallbladder function was also assessed after the administration of ensure drink and additional scintigraphic images were obtained of the abdomen. A re gion of interest was drawn over the gallbladder and a timing activity curve was generated. The gallbl adder ejection fraction was calculated. FINDINGS: Normal uptake of radiotracer was identified within the liver with excretion into the hepatic and comm on biliary ducts minutes. There was normal progressive washout of the liver over the course of the st udy. Radiotracer uptake within the gallbladder at 90 minutes as well as small bowel activity was iden tified at 6 minutes. Maximum calculated gallbladder ejection fraction is: 0% at 30 minutes (Normal gallbladder ejection fraction is > 35%) IMPRESSION: 1. Visualization of the gallbladder at 90 minutes which is longer than expected of 60 minutes. Correl ate for chronic cholecystitis. 2. Abnormal low Ejection fraction which is partially obscured by radiotracer within the bowel. Findin gs suggest biliary dyskinesia.
== END | disposition home or self-care (01) ==
LOC: RADNMMAIN 12:45
PROVIDERS: ATTEND Family Medicine
DX: R10.11 Right upper quadrant pain (principal)
CPT/HCPCS: 78226; A9537

== ENCOUNTER → 2023-11-24 | Outpatient (CLI) | payer BC ==
--- NOTE | 2023-11-24 08:09 | MM ---
Reason for Exam: Clinical finding. Indicated Problems: Lump or thickening of the right side for 2 Week(s). Patient History: Menarche at age 15. First Full-Term at age 19. Last menstrual period: 11/17/2023 Risk Values: Catrachita 5 year model risk: 0.2%. NCI Lifetime model risk: 7.5%. Tissue Density: The breasts are heterogeneously dense, which may obscure small masses. Findings: Analyzed By CAD. No distinct mass or distortion at the site of clinical concern right breast. Ultrasound is recommended. No masslike areas left breast. No suspicious calcifications seen. Overall Assessment: Incomplete: need additional imaging evaluation, BI-RAD 0 Management: Diagnostic Breast Ultrasound of the right breast. . Results were given to the patient verbally at the time of exam. Patient should continue monthly self-breast exams. A clinical breast exam by your physician is recommended on an annual basis. This exam should not preclude additional follow-up of suspicious palpable abnormalities. Note on Catrachita scores and lifetime risk: 1. A Catrachita score greater than 3% is considered moderate risk. If this is the case, consider specialist referral to assess eligibility for a risk reducing agent. 2. If overall lifetime risk for the development of breast cancer is 20% or higher, the patient may qualify for future screening with alternating mammogram and breast MRI. Electronically signed and approved by: Pavel Delgado M.D. Radiologis
--- NOTE | 2023-11-24 08:30 | USB ---
Reason for Exam: Clinical finding. Indicated Problems: Lump or thickening of the right side for 2 Week(s). Patient History: Menarche at age 15. First Full-Term at age 19. Risk Values: Catrachita 5 year model risk: 0.2%. NCI Lifetime model risk: 7.5%. Technique: Method: Targeted. Patient Position: Supine. Prior Study Comparison: No prior studies available for comparison. Findings: The upper outer quadrant of the right breast, the axilla of the right breast and the retroareolar of the right breast were scanned. No solid or cystic masses are identified. Further management clinically.. Overall Assessment: Negative, BI-RAD 1 Management: Screening Mammogram of both breasts at age 42. A clinical breast exam by your physician is recommended on an annual basis and results should be correlated with mammographic findings. This exam should not preclude additional follow-up of suspicious palpable abnormalities. Results were given to the patient verbally at the time of exam. Electronically signed and approved by: Pavel Delgado M.D. Radiologis
== END | disposition home or self-care (01) ==
LOC: RADMAMWWP 07:48
PROVIDERS: ATTEND Family Medicine
DX: N63.10 Unspecified lump in the right breast, unspecified quadrant (principal); R92.331 Mammographic heterogeneous density, right breast
CPT/HCPCS: 77062; 77066

== ENCOUNTER 2024-07-15 19:47 | Observation (INO) | payer BC ==
--- NOTE | 2024-07-15 20:25 | ED ---
Abdominal Pain HPI - General Chief Complaint: Abdominal Pain Stated Complaint: ABD Pain, Nausea Time Seen by Provider: 07/15/24 20:02 Source: patient, RN notes reviewed Mode of arrival: ambulatory Limitations: no limitations - History of Present Illness Initial Comments: This is a 38-year-old female presenting with right lower quadrant abdominal pain (7 out of 10) x 1 day. Patient states pain started as generalized cramping before becoming more sharp pain localizing to the right lower quadrant. Patient states she still has her appendix. Endorses associated nausea. Endorses minor pain relief with Motrin. Patient denies fever, chills, chest pain, dyspnea, vomiting, diarrhea, urinary symptoms, dizziness, referred pain. MD Complaint: abdominal pain Onset/Timin -: days(s) Location: RLQ Radiation: none Migration to: no migration Severity scale (1-10): 7 Quality: sharp Consistency: constant Improves With: nothing Worsens With: nothing Associated Symptoms: nausea, anorexia Treatments Prior to Arrival: NSAIDs - Related Data Previous Rx's Medication Instructions Recorded Ketorolac [Toradol] 10 mg PO Q6HR PRN #15 tab 09/01/23 Ondansetron Odt [Zofran Odt] 4 mg PO Q8HR PRN #15 tab 09/01/23 Allergies Allergy/AdvReac Type Severity Reaction Status Date / Time No Known Allergies Allergy Verified 07/15/24 20:05 Review of Systems ROS Statement: Those systems with pertinent positive or pertinent negative responses have been documented in the HPI. ROS Other: All systems not noted in ROS Statement are negative. Past Medical History Past Medical History: Hypertension History of Any Multi-Drug Resistant Organisms: None Reported Past Surgical History: Cholecystectomy Past Psychological History: Anxiety Smoking Status: Never smoker Past Alcohol Use History: Occasional, Rare Past Drug Use History: None Reported General Exam Limitations: no limitations General appearance: alert, in no apparent distress Head exam: Present: atraumatic, normocephalic, normal inspection Eye exam: Present: normal appearance, PERRL, EOMI. Absent: scleral icterus, conjunctival injection, periorbital swelling ENT exam: Present: normal exam, mucous membranes moist Neck exam: Present: normal inspection. Absent: tenderness, meningismus, lymphadenopathy Respiratory exam: Present: normal lung sounds bilaterally. Absent: respiratory distress, wheezes, rales, rhonchi, stridor Cardiovascular Exam: Present: regular rate, normal rhythm, normal heart sounds. Absent: systolic murmur, diastolic murmur, rubs, gallop, clicks GI/Abdominal exam: Present: soft, tenderness (Positive right lower quadrant tenderness and tympanic tenderness. Positive McBurney's point. Negative guarding. Positive rebound tenderness), rebound, normal bowel sounds. Absent: distended, guarding, rigid Extremities exam: Present: normal inspection, full ROM, normal capillary refill, other (Bilateral dorsalis pedis pulse +2). Absent: tenderness, pedal edema, joint swelling, calf tenderness Back exam: Present: normal inspection Neurological exam: Present: alert, oriented X3, CN II-XII intact Psychiatric exam: Present: normal affect, normal mood Skin exam: Present: warm, dry, intact, normal color. Absent: rash Course Vital Signs 07/15/24 20:02 Temperature 99.9 F H Pulse Rate 94 Respiratory 16 Rate Blood Pressure 140/95 O2 Sat by Pulse 100 Oximetry Medical Decision Making - Medical Decision Making Was pt. sent in by a medical professional or institution (, PA, [facility] [employer], urgent care, hospital, or prison...) When possible be specific @ -No Did you speak to anyone other than the patient for history (EMS, parent, family, police, friend...)? What history was obtained from this source @ -No Did you review nursing and triage notes (agree or disagree)? Why? @ -I reviewed and agree with nursing and triage notes Were old charts reviewed (outside hosp., previous admission, EMS record, old EKG, old radiological studies, urgent care reports/EKG's, prison records)? Report findings @ -No old charts were reviewed Differential Diagnosis (chest pain, altered mental status, abdominal pain women, abdominal pain men, vaginal bleeding, weakness, fever, dyspnea, syncope, headache, dizziness, GI bleed, back pain, seizure, CVA, palpatations, mental health, musculoskeletal)? @ -Differential Abdominal Pain Women: Appendicitis, Cholecystitis, diverticulosis, ischemic bowel, pancreatitis, hepatitis, UTI, gastroenteritis, AAA, incarcerated hernia, bowel obstruction, constipation, inflammatory bowel, hepatitis, peptic ulcer disease, splenic infarction, perforated viscus, vulvitis, ovarian torsion, PID, kidney stone, placenta abruption, this is not meant to be an all-inclusive list EKG interpreted by me (3pts min.). @ -Not done X-rays interpreted by me (1pt min.). @ -None done CT interpreted by me (1pt min.). @ -Abdominal CT shows acute appendicitis without perforation or abscess. U/S interpreted by me (1pt. min.). @ -None done What testing was considered but not performed or refused? (CT, X-rays, U/S, lab s)? Why? @ -None What meds were considered but not given or refused? Why? @ -None Did you discuss the management of the patient with other professionals (professionals i.e. DrBen, PA, [facility] [employer], lab, RT, psych nurse, social science teacher, regulatory assistant, teacher, targeting acquisition officer, child support case officer)? Give summary @ -Yes. Spoke to Dr. Nino and advised of patient's HPI, physical exam and CT findings. Dr. Nino advised admit patient and prep for surgery. Was smoking cessation discussed for >3mins.? @ -No Was critical care preformed (if so, how long)? @ -No Were there social determinants of health that impacted care today? How? (Homelessness, low income, unemployed, alcoholism, drug addiction, transportation, low edu. Level, literacy, decrease access to med. care, penitentiary, rehab)? @ -No Was there de-escalation of care discussed even if they declined (Discuss DNR or withdrawal of care, Hospice)? DNR status @ -No What co-morbidities impacted this encounter? (DM, HTN, Smoking, COPD, CAD, Cancer, CVA, ARF, Chemo, Hep., AIDS, mental health diagnosis, sleep apnea, morbid obesity)? @ -None Was patient admitted / discharged? Hospital course, mention meds given and route, prescriptions, significant lab abnormalities, going to OR and other pertinent info. @ -Minute. Lab work shows elevated white count at 12.2. Abdominal CT findings acute appendicitis without abscess or perforation. Pain initially managed with Toradol IV. Additional Toradol as well as Dilaudid provided to patient upon request. Spoke to Dr. Nino who advised start IV antibiotics and states he will prepare for surgery. Zosyn IV started for patient and she was placed n.p.o. Undiagnosed new problem with uncertain prognosis? @ -No Drug Therapy requiring intensive monitoring for toxicity (Heparin, Nitro, Insulin, Cardizem)? @ -No Were any procedures done? @ -No Diagnosis/symptom? @ -Acute appendicitis without perforation Acute, or Chronic, or Acute on Chronic? @ -Acute Uncomplicated (without systemic symptoms) or Complicated (systemic symptoms)? @ -Complicated Side effects of treatment? @ -No Exacerbation, Progression, or Severe Exacerbation? @ -No Poses a threat to life or bodily function? How? (Chest pain, [place], [place], pneumonia, PE, COPD, DKA, ARF, appy, cholecystitis, CVA, Diverticulitis, Homicidal, Suicidal, threat to staff... and all critical care pts) @ -Appendicitis - Lab Data Result diagrams: 07/15/24 20:30 07/15/24 20:30 Lab Results 07/15/24 07/15/24 07/15/24 Range/Units 20:30 20:30 20:30 WBC 12.2 H (3.8-10.6) k/uL RBC 4.95 (3.80-5.40) m/uL Hgb 14.3 (11.4-16.0) gm/dL Hct 43.6 (34.0-46.0) % MCV 88.0 (80.0-100.0) fL MCH 28.8 (25.0-35.0) pg MCHC 32.8 (31.0-37.0) g/dL RDW 12.9 (11.5-15.5) % Plt Count 175 (150-450) k/uL MPV 7.9 Neutrophils % 81 % Lymphocytes % 14 % Monocytes % 4 % Eosinophils % 1 % Basophils % 0 % Neutrophils # 9.9 H (1.3-7.7) k/uL Lymphocytes # 1.7 (1.0-4.8) k/uL Monocytes # 0.4 (0-1.0) k/uL Eosinophils # 0.1 (0-0.7) k/uL Basophils # 0.0 (0-0.2) k/uL Sodium 138 (137-145) mmol/L Potassium 4.2 (3.5-5.1) mmol/L Chloride 108 H (98-107) mmol/L Carbon Dioxide 21 L (22-30) mmol/L Anion Gap 9 mmol/L BUN 11 (7-17) mg/dL Creatinine 0.66 (0.52-1.04) mg/dL Est GFR (CKD-EPI)AfAm >90 (>60 ml/min/1.73 sqM) Est GFR (CKD-EPI)NonAf >90 (>60 ml/min/1.73 sqM) Glucose 88 (74-99) mg/dL Plasma Lactic Acid Connor 0.8 (0.7-2.0) mmol/L Calcium 9.4 (8.4-10.2) mg/dL Total Bilirubin 1.3 (0.2-1.3) mg/dL AST 21 (14-36) U/L ALT 15 (4-34) U/L Alkaline Phosphatase 53 (38-126) U/L C-Reactive Protein 1.7 H (<1.0) mg/dL Total Protein 7.6 (6.3-8.2) g/dL Albumin 4.8 (3.5-5.0) g/dL Lipase 75 (23-300) U/L HCG, Quant <2.4 mIU/mL Disposition Clinical Impression: Acute appendicitis Disposition: ADMITTED IP TO THIS HOSP Condition: Stable Is patient prescribed a controlled substance at d/c from ED?: No Referrals: Kira Burgos MD [Primary Care Provider] - 1-2 days Time of Disposition: 22:44
[2024-07-15] MEDS: KETOROLAC 15 MG/ML 1 ML VIAL IVP STA ×2 (20:29→22:45)
[2024-07-15 20:40] LABS: Basophils % (A) 0 %; Eosinophils # (A) 0.1 k/uL (0-0.7); Eosinophils % (A) 1 %; HCT 43.6 % (34.0-46.0); HGB 14.3 gm/dL (11.4-16.0); Lymphocytes # (A) 1.7 k/uL (1.0-4.8); Lymphocytes % (A) 14 %; MCH 28.8 pg (25.0-35.0); MCHC 32.8 g/dL (31.0-37.0); Mean Platelet Volume 7.9; Monocytes # (A) 0.4 k/uL (0-1.0); Monocytes % (A) 4 %; Neutrophils # (A) 9.9 k/uL (1.3-7.7); Neutrophils % (A) 81 %; Platelet Count 175 k/uL (150-450); RBC 4.95 m/uL (3.80-5.40); RDW 12.9 % (11.5-15.5); WBC 12.2 k/uL (3.8-10.6)
[2024-07-15 20:57] LABS: ALT 15 U/L (4-34); AST 21 U/L (14-36); African American GFR (CKD) >90 (>60 ml/min/1.73 sqM); Albumin 4.8 g/dL (3.5-5.0); Alkaline Phosphatase 53 U/L (38-126); Anion Gap 9 mmol/L; Blood Urea Nitrogen 11 mg/dL (7-17); C Reactive Protein 1.7 mg/dL (<1.0); Calcium 9.4 mg/dL (8.4-10.2); Carbon Dioxide 21 mmol/L (22-30); Chloride 108 mmol/L (98-107); Glucose 88 mg/dL (74-99); Lipase 75 U/L (23-300); Non-African American GFR(CKD) >90 (>60 ml/min/1.73 sqM); Potassium 4.2 mmol/L (3.5-5.1); Sodium 138 mmol/L (137-145); Total Bilirubin 1.3 mg/dL (0.2-1.3); Total Protein 7.6 g/dL (6.3-8.2)
[2024-07-15 21:11] LABS: HCG,Quantitative Serum <2.4 mIU/mL
--- NOTE | 2024-07-15 22:22 | CT ---
EXAMINATION TYPE: CT abdomen pelvis w con DATE OF EXAM: 07/15/2024 9:54 PM COMPARISON: 09/01/2023 CLINICAL INDICATION: Female, 38 years old with history of Right lower quadrant pain; Reports bad stom ach pains all day, started like cramping but now its sharp and more in the RLQ. Still has appendix. R eports nausea but no vomit/diarrhea. Took Motrin. TECHNIQUE: Axial CT abdomen pelvis w con;Sagittal and coronal reformats were created on a separate w orkstation. Contrast used:100 mL mL of Isovue 300 with IV Contrast, (none if empty) Oral contrast used: without Oral Contrast (none if empty) CT DLP: 737 mGycm, Automated exposure control for dose reduction was used. FINDINGS: LOWER CHEST: Unremarkable ABDOMEN LIVER: Scattered simple appearing cyst. GALLBLADDER AND BILE DUCTS: Gallbladder is absent. PANCREAS: Unremarkable. SPLEEN: Unremarkable. ADRENAL GLANDS: Unremarkable. KIDNEYS AND URETERS: No evidence of hydronephrosis or renal calculus. The ureters are unremarkable. PELVIS BLADDER: No evidence for wall thickening or mass given limitations of exam. REPRODUCTIVE: Unremarkable. ABDOMEN & PELVIS STOMACH AND BOWEL: No evidence of bowel obstruction. The appendix is dilated with calcified stones me asuring 6 mm in the lumen near the base and another more distally. There are at least 2 appendicolith s present. Fat stranding changes are seen around the the appendix is appendix measures up to 11 mm in thickness. No evidence for perforation at this time no evidence for abscess.e PERITONEUM/RETROPERITONEUM: No evidence of pneumoperitoneum or free fluid. VASCULATURE: No evidence of aortic aneurysm. MUSCULOSKELETAL: No acute osseous abnormalities LYMPH NODES: No gross evidence for lymphadenopathy. SOFT TISSUE/ABDOMINAL WALL: Unremarkable IMPRESSION: Acute appendicitis with appendicoliths in the appendix lumen measuring up to 6 mm. Surgical consultat ion recommended. [facility], , 07/15/2024 10:20 PM
[2024-07-15] MEDS ORDERED: KETOROLAC 15 MG/ML 1 ML VIAL IVP PRN (22:36)
[2024-07-15] MEDS ORDERED: NALOXONE 0.4 MG/ML 1 ML VIAL IV PRN (22:36)
[2024-07-15] MEDS ORDERED: HYDROmorphone 0.5 MG/0.5 ML SYRINGE IVP PRN (22:36)
[2024-07-15] MEDS: HYDROmorphone 0.5 MG/0.5 ML SYRINGE IVP STA (22:43)
[2024-07-15] MEDS: ONDANSETRON 4 MG/2 ML VIAL IVP PRN (23:36)
[2024-07-15] MEDS: LIDOCAINE 1%-EPI 1:100,000 20 ML VIAL SQ ONE (23:45)
[2024-07-15] MEDS ORDERED: GLYCOPYRROLATE 0.2 MG/ML 2 ML VIAL ONE (23:46)
[2024-07-15] MEDS ORDERED: SUCCINYLCHOLINE CHLORIDE 200 MG/10 ML VIAL IV ONE (23:46)
[2024-07-15] MEDS ORDERED: NEOSTIGMINE 1 MG/ML 10 ML VIAL ONE (23:46)
[2024-07-15] MEDS ORDERED: MIDAZOLAM 2 MG/2 ML VIAL ONE (23:46)
[2024-07-15] MEDS ORDERED: PROPOFOL 10 MG/ML 20 ML VIAL IV ONE (23:46)
[2024-07-15] MEDS ORDERED: ROCURONIUM 10 MG/ML (5 ML VIAL) IV ONE (23:46)
[2024-07-15] MEDS ORDERED: LIDOCAINE 1% INJ 10MG/ML (20 ML MDV) ONE (23:46)
[2024-07-15] MEDS ORDERED: fentaNYL (PF) 50 MCG/ML 2 ML AMP ONE (23:46)
--- NOTE | 2024-07-15 23:50 | P.GSHP ---
History of Present Illness H&P Date: 07/15/24 38-year-old female presented to the emergency department with complaint of abdominal pain mainly in the right lower quadrant. This started at about 9 AM this morning and progressively worsened throughout the day. Patient complains of nausea and vomiting. No appetite. On workup, patient did have CT of the abdomen pelvis concerning for acute appendicitis without perforation. - Review of Systems All systems: negative Past Medical History Past Medical History: Hypertension History of Any Multi-Drug Resistant Organisms: None Reported Past Surgical History: Cholecystectomy Past Psychological History: Anxiety Smoking Status: Never smoker Past Alcohol Use History: Occasional, Rare Past Drug Use History: None Reported Medications and Allergies Home Medications Medication Instructions Recorded Confirmed Type Ketorolac [Toradol] 10 mg PO Q6HR PRN #15 tab 09/01/23 Rx Ondansetron Odt [Zofran Odt] 4 mg PO Q8HR PRN #15 tab 09/01/23 Rx Allergies Allergy/AdvReac Type Severity Reaction Status Date / Time No Known Allergies Allergy Verified 07/15/24 20:05 Surgical - Exam Osteopathic Statement: *. No significant issues noted on an osteopathic structural exam other than those noted in the History and Physical/Consult. Vital Signs Temp Pulse Resp BP Pulse Ox 99.9 F H 94 16 140/95 100 07/15/24 20:02 07/15/24 20:02 07/15/24 20:02 07/15/24 20:02 07/15/24 20:02 - General well developed, well nourished - Eyes normal ocular movement - ENT no hearing loss - Neck trachea midline - Respiratory normal respiratory effort - Abdomen Soft, tender to palpation in the right lower quadrant, nondistended, no rebound, no guarding - Psychiatric oriented to time, oriented to person, oriented to place Results - Labs 07/15/24 20:30 07/15/24 20:30 Abnormal Lab Results - Last 24 Hours (Table) 07/15/24 07/15/24 Range/Units 20:30 20:30 WBC 12.2 H (3.8-10.6) k/uL Neutrophils # 9.9 H (1.3-7.7) k/uL Chloride 108 H (98-107) mmol/L Carbon Dioxide 21 L (22-30) mmol/L C-Reactive Protein 1.7 H (<1.0) mg/dL Diabetes panel 10/27/24 Range/Units 20:30 Sodium 138 (137-145) mmol/L Potassium 4.2 (3.5-5.1) mmol/L Chloride 108 H (98-107) mmol/L Carbon Dioxide 21 L (22-30) mmol/L BUN 11 (7-17) mg/dL Creatinine 0.66 (0.52-1.04) mg/dL Glucose 88 (74-99) mg/dL Calcium 9.4 (8.4-10.2) mg/dL AST 21 (14-36) U/L ALT 15 (4-34) U/L Alkaline Phosphatase 53 (38-126) U/L Total Protein 7.6 (6.3-8.2) g/dL Albumin 4.8 (3.5-5.0) g/dL Calcium panel 07/15/24 Range/Units 20:30 Calcium 9.4 (8.4-10.2) mg/dL Albumin 4.8 (3.5-5.0) g/dL Pituitary panel 07/15/24 Range/Units 20:30 Sodium 138 (137-145) mmol/L Potassium 4.2 (3.5-5.1) mmol/L Chloride 108 H (98-107) mmol/L Carbon Dioxide 21 L (22-30) mmol/L BUN 11 (7-17) mg/dL Creatinine 0.66 (0.52-1.04) mg/dL Glucose 88 (74-99) mg/dL Calcium 9.4 (8.4-10.2) mg/dL Adrenal panel 07/15/24 Range/Units 20:30 Sodium 138 (137-145) mmol/L Potassium 4.2 (3.5-5.1) mmol/L Chloride 108 H (98-107) mmol/L Carbon Dioxide 21 L (22-30) mmol/L BUN 11 (7-17) mg/dL Creatinine 0.66 (0.52-1.04) mg/dL Glucose 88 (74-99) mg/dL Calcium 9.4 (8.4-10.2) mg/dL Total Bilirubin 1.3 (0.2-1.3) mg/dL AST 21 (14-36) U/L ALT 15 (4-34) U/L Alkaline Phosphatase 53 (38-126) U/L Total Protein 7.6 (6.3-8.2) g/dL Albumin 4.8 (3.5-5.0) g/dL Assessment and Plan Plan: 38-year-old female with acute appendicitis. Keep NPO. Patient started on IV antibiotics. Plan for laparoscopic appendectomy. Risks, benefits and alternatives were discussed with the patient. Consent was provided. Further recommendations after procedure is completed.
[2024-07-15] MEDS ORDERED: HYDROcodone/APAP 5-325MG 1 EACH TAB PO PRN (23:51)
[2024-07-15] MEDS: IV FLUID CONTINUATION 1,000 ML IV ONE (23:51)
[2024-07-15] MEDS ORDERED: MORPHINE SULFATE 2 MG/ML SYRINGE IVP PRN (23:51)
[2024-07-15] MEDS: SODIUM CHLORIDE 0.9% 50 ML with ceFAZolin 2,000 MG IV ONE (23:51)
[2024-07-16] MEDS: LIDOCAINE 1%-EPI 1:100,000 20 ML VIAL SQ ONE ×2 (00:08)
[2024-07-16] MEDS: LACTATED RINGERS 1,000 ML IV ONE (00:26)
--- NOTE | 2024-07-16 00:38 | P.OP ---
Date of Procedure: 07/16/24 Preoperative Diagnosis: Acute appendicitis Postoperative Diagnosis: Acute ruptured appendicitis Procedure(s) Performed: Laparoscopic appendectomy Anesthesia: LIZANDRO Surgeon: Sanford Nion Pathology: other (Appendix) Condition: stable Disposition: floor Indications for Procedure: 38-year-old female presented to the emergency department with complaint of right lower quadrant abdominal pain. On workup she is found to have acute appendicitis. Risks, benefits and alternatives were provided for laparoscopic appendectomy. Patient has opted for surgery and did provide consent prior to attending the operating suite. Operative Findings: Acute ruptured appendicitis Description of Procedure: Patient was brought to the operating suite and placed in supine position on the operating table. Sedation was provided by anesthesia and the patient underwent endotracheal intubation. She was then prepped and draped in regular sterile fashion. A supraumbilical incision was made and dissection was carried to the fascia. The fascia was incised and a 12 mm trocar was placed. 2 additional 5 mm trocars were placed in the suprapubic region and left lower quadrant. Patient was then positioned appropriately. On exam of the cecum, the base of the appendix was identified and the appendix was noted to be adhered to the omentum. Omentum was peeled away and stool was noted on the appendix site. Window was created between the appendix and the mesoappendix and the mesoappendix was ligated. Base of the appendix was free and stapler was fired across the base of the appendix. Hemostasis was noted to be maintained. Appendix was placed in an Endo Catch bag and removed from the abdomen from the supraumbilical incision site. Irrigation was placed in the right lower quadrant and suction. Patient was noted to have turbid fluid in the pelvis and this was suctioned as well. On further exam, hemostasis was noted to be maintained. Fascia of the supraumbilical incision site was then closed under direct visualization using a Jack-Betet device and 0 Vicryl suture. Pneumoperitoneum was released and all ports removed from the abdomen. Incision sites were closed with 4-0 Vicryl subcuticular suture. Sterile dressing was applied. The patient was awakened in the operating suite and taken to postanesthesia care unit in stable condition.
[2024-07-16] MEDS: MEPERIDINE 50 MG/ML SYRINGE IVP STA (00:54)
[2024-07-16] MEDS: droPERidol 5 MG/2 ML VIAL IVP ONE (01:01)
[2024-07-16] MEDS: HEPARIN SODIUM,PORCINE 5,000 UNIT/ML 1 ML VIAL SQ SCH (01:39)
[2024-07-16] MEDS: KETOROLAC 15 MG/ML 1 ML VIAL IVP SCH (01:39)
[2024-07-16] MEDS: PIPERACILLIN-TAZOBACTAM 3.375 GM in SODIUM CHLORIDE 0.9% 100 ML IVPB SCH (01:55)
[2024-07-16 07:54] VITALS: RESP 17
[2024-07-16 08:37] LABS: Basophils # (A) 0.01 X 10*3/uL (0.00-0.10); Basophils % (A) 0.1 %; Eosinophils # (A) 0.01 X 10*3/uL (0.04-0.35); Eosinophils % (A) 0.1 %; HCT 34.8 % (37.2-46.3); HGB 11.8 g/dL (12.0-15.0); Lymphocytes # (A) 1.28 X 10*3/uL (0.90-5.00); Lymphocytes % (A) 13.8 %; MCHC 33.9 g/dL (32.0-37.0); MCV 88.5 FL (80.0-97.0); Mean Platelet Volume 10.9 FL (9.5-12.2); Monocytes # (A) 0.53 X 10*3/uL (0.20-1.00); Monocytes % (A) 5.7 %; NRBC Per 100 WBC 0 X 10*3/uL (0.00-0.01); Neutrophils # (A) 7.43 X 10*3/uL (1.80-7.70); Neutrophils % (A) 80.1 %; Platelet Count 132 X 10*3/uL (140-440); RBC 3.93 X 10*6/uL (4.10-5.20); RDW 12.9 % (11.5-14.5); WBC 9.28 X 10*3/uL (4.50-10.00)
[2024-07-16 08:50] LABS: BUN/Creat Ratio 12.43 Ratio (12.00-20.00); Blood Urea Nitrogen 8.7 mg/dL (9.0-27.0); Glucose 97 mg/dL (70-110)
[2024-07-16 08:51] LABS: ALT 172 U/L (8-44); AST 258 U/L (13-35); Albumin 3.8 g/dL (3.8-4.9); Albumin/Globulin Ratio 2.11 Ratio (1.60-3.17); Alkaline Phosphatase 45 U/L (41-126); Calcium 8.3 mg/dL (8.7-10.3); Carbon Dioxide 22.4 mmol/L (21.6-31.8); Chloride 107 mmol/L (96-109); Globulin 1.8 g/dL (1.6-3.3); Sodium 138 mmol/L (135-145); Total Protein 5.6 g/dL (6.2-8.2)
[2024-07-16] MEDS: PANTOPRAZOLE 40 MG TABLET PO SCH (09:48)
[2024-07-16] MEDS ORDERED: ACETAMINOPHEN TAB 325 MG TAB PO PRN (11:05)
[2024-07-16 13:58] VITALS: BP 116/75; PULSE 77; TEMP 98.6
--- NOTE | 2024-07-16 14:26 | P.DS ---
Providers Date of admission: 07/16/24 13:09 Expected date of discharge: 07/16/24 Attending physician: Sanford Nino DO Primary care physician: Kira Burgos [facility] Course: Discharge diagnosis 1. Acute ruptured appendicitis status post laparoscopic appendectomy 2. Elevated LFTs possibly medication induced. Recommend repeating LFT lab work outpatient Hospital course This is a 38-year-old female who presented with right lower quadrant abdominal pain. CT scan had reported acute appendicitis without perforation. Patient is status post laparoscopic appendectomy for acute ruptured appendicitis. Patient reports her pain is controlled. She is tolerating diet. She is afebrile. Her white count has normalized. She has been up and ambulating. She is having flatus. She is stable for discharge. Please refer to chart for any further details. Physician Medical Device note has been reviewed by physician. Signing provider agrees with the documented findings, assessment, and plan of care. Attestation Patient did well status post laparoscopic appendectomy. Tolerating diet. White count has normalized. Recommend discharge with outpatient antibiotics and plan for follow-up in the outpatient. Sanford Nino DO Patient Condition at Discharge: Stable Plan - Discharge Summary Discharge Rx Participant: No New Discharge Prescriptions: New Amoxic-Pot Clav 500-125 mg [Augmentin 500-125 mg] 1 tab PO Q12HR 5 Days #10 tab Ibuprofen [Motrin] 600 mg PO Q8HR PRN #30 tab PRN Reason: Pain Continue clonazePAM 0.5 mg PO DAILY PRN PRN Reason: Anxiety busPIRone HCL [Buspar] 7.5 mg PO BID No Action amLODIPine BESYLATE/BENAZEPRIL [Lotrel 5-20 mg Capsule] 1 cap PO DAILY Discharge Medication List Amoxic-Pot Clav 500-125 mg [Augmentin 500-125 mg] 1 tab PO Q12HR 5 Days #10 tab 07/16/24 [Rx] Ibuprofen [Motrin] 600 mg PO Q8HR PRN #30 tab 07/16/24 [Rx] amLODIPine BESYLATE/BENAZEPRIL [Lotrel 5-20 mg Capsule] 1 cap PO DAILY 07/16/24 [History] busPIRone HCL [Buspar] 7.5 mg PO BID 07/16/24 [History] clonazePAM 0.5 mg PO DAILY PRN 07/16/24 [History] Follow up Appointment(s)/Referral(s): Kira Burgos MD [Primary Care Provider] - 07/23/24 10:15 am Sanford Nino DO [Doctor of Osteopathic Medicine] - 07/31/24 10:15 am (the office will mail new patient paperwork to you. Please bring completed paperwork, picture ID and insurance card to appointment. ) Patient Instructions/Handouts: Ibuprofen (By mouth), Amoxicillin/Clavulanate Potassium (By mouth), Laparoscopic Appendectomy (DC) Activity/Diet/Wound Care/Special Instructions: No lifting over 10 pounds You may shower. No soaking or tub baths for 2 weeks Very light activity until you are reevaluated at your follow up appointment with your surgeon Do not take BP med today and tomorrow. Ok to resume on 07/18/24 but Hold on taking BP med if SBP<120 Repeat LFTs in office at follow up in 1 week Discharge Disposition: HOME SELF-CARE
== END 2024-07-16 15:55 | disposition home or self-care (01) ==
LOC: EC 19:47 → INTOOBSV 22:28 → 4SSUR 22:28 → UNDOADMOB 22:28 → 5NMEDONC 22:56 → 4SSUR 22:56 → 5NMEDONC 07-16 00:09
PROVIDERS: ADMIT Surgery; ATTEND Surgery
DX: K35.32 Acute appendicitis with perforation, localized peritonitis, and gangrene, without abscess (principal); F41.9 Anxiety disorder, unspecified; I10 Essential (primary) hypertension; Z79.899 Other long term (current) drug therapy
CPT/HCPCS: 44970; 96365; 96366; 96372; 96376; 96375; 99285; 36415; 93005; 88304; 80053 ×2; 83605; 83690; 85025 ×2; 86140; 84702; 74177; G0378; J2543; J2250; J0330; J1644; J2710; J2175; J2405; J0690; J2003; J3010; J1885 ×2; J2704; J1171; Q9967; J1790; J1596